=== PATIENT | female | born 2000 | race Caucasian/White ===

== ENCOUNTER 2021-08-19 00:12 | Inpatient (IN) ==
[2021-08-19] MEDS ORDERED: miSOPROStoL 200 MCG TABLET RECTAL PRN (00:22)
[2021-08-19] MEDS ORDERED: ONDANSETRON 4 MG/2 ML VIAL IV PRN (00:22)
[2021-08-19] MEDS ORDERED: LACTATED RINGERS 250 ML IV ONE (00:22)
[2021-08-19] MEDS ORDERED: TRANEXAMIC ACID 1,000 MG in SODIUM CHLORIDE 0.9% 100 ML IV PRN (00:22)
[2021-08-19] MEDS ORDERED: OXYTOCIN/LR 20 UNIT/1,000 ML BAG IV ONE ×4 (00:22→16:30)
[2021-08-19] MEDS ORDERED: LACTATED RINGERS 500 ML IV PRN (00:22)
[2021-08-19] MEDS ORDERED: ACETAMINOPHEN 325 MG TABLET PO PRN (00:22)
[2021-08-19] MEDS ORDERED: BUTORPHANOL 2 MG/ML VIAL IV PRN (00:22)
[2021-08-19] MEDS ORDERED: CARBOPROST TROMETHAMINE 250 MCG/ML AMP IM PRN (00:22)
[2021-08-19] MEDS ORDERED: METHYLERGONOVINE 0.2 MG/1 ML AMP IM PRN (00:22)
[2021-08-19] MEDS ORDERED: MEPERIDINE 50 MG/1 ML VIAL IV PRN (00:28)
[2021-08-19] MEDS: LACTATED RINGERS 1,000 ML IV SCH ×2 (00:55→08:57)
[2021-08-19 02:53] LABS: Alanine Aminotransferase 14 U/L (13-56); Albumin 2.5 G/DL (3.4-5.0); Alkaline Phosphatase 151 U/L (45-117); Aspartate Amino Transferase 12 U/L (0-37); Bilirubin,Total < 0.39 MG/DL (0.20-1.00); Blood Urea Nitrogen 14 MG/DL (7-18); Calcium 9.4 MG/DL (8.5-10.1); Carbon Dioxide 21 MMOL/L (21-32); Chloride 110 MMOL/L (98-107); Estimated Glom Filtration Rate 155 ML/MIN; Glucose 119 MG/DL (74-106); Osmolality,Calculated 274.8 MOS/KG (273-304); Potassium 4.1 MMOL/L (3.5-5.1); Sodium 137 MMOL/L (136-145); Total Protein 6.5 G/DL (6.4-8.2)
[2021-08-19 04:07] LABS: Basophils % 0.1 % (0.0-0.8); Eosinophils % 0.4 % (0.00-10.9); Hematocrit 32.8 VOL% (35.7-47.0); Hemoglobin 10.3 GM/DL (12.0-16.0); Immature Granulocytes % 0.2 %; Immature Granulocytes Absolute 0.02 #; Lymphocytes # 2.3 10*3/uL (1.4-4.0); Lymphocytes % 27.3 % (21.3-54.2); Mean Corpuscular HGB Conc 31.4 GM/DL (32-36); Mean Corpuscular Volume 84.1 FL (87-102); Monocytes # 0.7 10*3/uL (0.11-0.8); Monocytes % 7.8 % (1.7-12.7); Neutrophils % 64.2 % (38.7-73.9); Platelet Count 128 T/CUMM (130-400); Red Cell Distribution Width 16.7 % (9.3-17.3); White Blood Count 8.5 T/CUMM (4-12)
[2021-08-19] MEDS ORDERED: FAMOTIDINE 20 MG/2 ML VIAL IV ONE (10:53)
[2021-08-19] MEDS ORDERED: CITRIC ACID/SODIUM CITRATE 30 ML UDCUP PO ONE (10:53)
[2021-08-19] MEDS ORDERED: LACTATED RINGERS 1,000 ML IV ONE (10:53)
[2021-08-19] MEDS ORDERED: NALOXONE 0.4 MG/ML VIAL IV PRN (10:54)
[2021-08-19] MEDS ORDERED: PROMETHAZINE 25 MG/1 ML VIAL IM ONE (10:54)
[2021-08-19] MEDS ORDERED: diphenhydrAMINE 50 MG/1 ML VIAL IV PRN ×2 (10:54)
[2021-08-19] MEDS ORDERED: hydrOXYzine HCL 25 MG/1 ML VIAL IM PRN (10:54)
[2021-08-19] MEDS ORDERED: ePHEDrine 50 MG/ML VIAL IV PRN (10:54)
[2021-08-19] MEDS ORDERED: fentaNYL 2 MCG/ROPIV 0.2% EPID 100 ML EPIDURAL SCH (11:00)
[2021-08-19] MEDS ORDERED: fentaNYL 100 MCG/2 ML VIAL ONE (11:34)
[2021-08-19 12:22] LABS: Cord Arterial Blood HCO3 12.9 MMOL/L
[2021-08-19 12:25] LABS: Cord Venous Blood HCO3 15.1 MMOL/L; Cord Venous Blood PO2 18.4
[2021-08-19] MEDS ORDERED: WITCH HAZEL PADS 100/JAR TOP PRN (15:52)
[2021-08-19] MEDS ORDERED: LANOLIN 50% CREAM 0.3 OZ TUBE TOP PRN (15:52)
[2021-08-19] MEDS ORDERED: HYDROCORTISONE 2.5% RECTAL CREAM 30 GM TUBE TOP PRN (15:52)
[2021-08-19] MEDS ORDERED: MEASLES/MUMPS/RUBELLA VACCINE 0.5 ML VIAL SUBCUT ONE (15:52)
[2021-08-19] MEDS ORDERED: BISACODYL 10 MG SUPP RECTAL PRN (15:52)
[2021-08-19] MEDS ORDERED: BENZOCAINE 20%/MENTHOL 0.5% SPRAY 56 GM CAN TOP PRN (15:52)
[2021-08-19] MEDS ORDERED: DIPH/TET/ACEL PERT BOOSTER VACCINE 0.5 ML VIAL IM ONE (15:52)
[2021-08-19] MEDS ORDERED: oxyCODONE/ACETAMINOPHEN 5-325 MG TABLET PO PRN ×2 (15:52)
[2021-08-19] MEDS: IBUPROFEN 800 MG TABLET PO PRN (15:58)
[2021-08-19] MEDS ORDERED: RHO(D) IMMUNE GLOBULIN 300 MCG SYRINGE IM ONE (16:30)
[2021-08-19] MEDS: DOCUSATE SODIUM 100 MG CAPSULE PO SCH (20:29)
[2021-08-20 05:53] LABS: Basophils % 0.1 % (0.0-0.8); Eosinophils % 0.6 % (0.00-10.9); Hematocrit 25.5 VOL% (35.7-47.0); Hemoglobin 7.9 GM/DL (12.0-16.0); Immature Granulocytes % 0.4 %; Immature Granulocytes Absolute 0.03 #; Lymphocytes # 2.1 10*3/uL (1.4-4.0); Lymphocytes % 30.2 % (21.3-54.2); Mean Corpuscular Volume 84.7 FL (87-102); Monocytes # 0.6 10*3/uL (0.11-0.8); Monocytes % 8.9 % (1.7-12.7); Neutrophils % 59.8 % (38.7-73.9); Platelet Count 94 T/CUMM (130-400); Red Blood Count 3.01 MC/CUMM (3.8-5.5); Red Cell Distribution Width 16.8 % (9.3-17.3)
[2021-08-20 06:24] LABS: Hypochromia Slight; Microcytosis 1+; Ovalocytes Few
[2021-08-20 06:25] LABS: Anisocytosis 1+
[2021-08-20 06:26] LABS: Polychromasia Few
[2021-08-20 06:27] LABS: Platelet Estimate Adequate
[2021-08-20] MEDS: DOCUSATE SODIUM 100 MG CAPSULE PO SCH ×2 (08:59→22:49)
[2021-08-20] MEDS: IBUPROFEN 800 MG TABLET PO PRN (19:16)
[2021-08-20] MEDS: FERROUS SULFATE 325 MG TABLET PO SCH (22:50)
[2021-08-21] MEDS: FERROUS SULFATE 325 MG TABLET PO SCH (08:31)
[2021-08-21] MEDS: DOCUSATE SODIUM 100 MG CAPSULE PO SCH (08:31)
[2021-08-21] MEDS: IBUPROFEN 800 MG TABLET PO PRN (10:08)
[2021-08-21] MEDS ORDERED: DIPH/TET/ACEL PERT BOOSTER VACCINE 0.5 ML VIAL IM ONE (10:08)
[2021-08-21 13:06] VITALS: BP 145/81
== END 2021-08-21 17:00 | disposition home or self-care (01) | DRG 560 ==
LOC: N.LD 00:12 → N.OB 15:51
PROVIDERS: ADMIT Obstetrics & Gynecology; ATTEND Obstetrics & Gynecology